=== PATIENT | female | born 1965 | race Caucasian/White ===

== ENCOUNTER → 2023-12-18 10:58 | Outpatient (REF) | payer OTHER, SELFPAY | LOC: WDC 10:58 | PROVIDERS: ATTENDING PHYSICIAN Nurse Practitioner Family | DX: Z12.31 Encounter for screening mammogram for malignant neoplasm of breast (principal) | CPT/HCPCS: 77063; 77067 ==

== ENCOUNTER → 2024-12-19 11:44 | Outpatient (REF) | payer OTHER, SELFPAY | LOC: WDC 11:44 | PROVIDERS: ATTENDING PHYSICIAN Nurse Practitioner Family | DX: Z12.31 Encounter for screening mammogram for malignant neoplasm of breast (principal) | CPT/HCPCS: 77063; 77067 ==